=== PATIENT | female | born 1940 | race Caucasian/White ===

== ENCOUNTER 2025-08-30 13:03 | Emergency (ER) | payer MEDICARE, BC ==
[~2025-08-30] VITALS: Ht 170.2 cm; Wt 58.1 kg
[2025-08-30 14:52] LABS: PLATELET COUNT (AUTO) 208 K/uL (150-450); RED BLOOD CELL COUNT(AUTO) 4.52 MIL/uL (4.0-5.2); RED CELL DISTRIBUTION WIDTH 14.7 % (11.5-15.0); WHITE BLOOD COUNT (AUTO) 5.2 K/uL (4.3-11.0)
[2025-08-30 15:04] LABS: INR 0.97 (0.91-1.10)
[2025-08-30 15:05] LABS: CALCIUM, SERUM 8.8 mg/dL (8.5-10.1); CREATININE 1.1 mg/dL (0.6-1.3); SODIUM SERUM 137.0 mmol/L (136-145); UREA NITROGEN, BLOOD 22.0 mg/dL (7-18)
[2025-08-30 15:25] LABS: ASPARTATE AMINOTRANSFERASE 30.0 U/L (15-37); NT-PRO BNP 114.0 pg/mL (0-125); TOTAL PROTEIN, SERUM 7.9 g/dL (6.4-8.2)
[2025-08-30 15:41] VITALS: BP 132/81; TEMP 98.1; O2SAT 98
== END 2025-08-30 15:42 | disposition home or self-care (01) ==
LOC: ER 13:17
DX: R60.0 Localized edema (principal); E03.9 Hypothyroidism, unspecified; R06.02 Shortness of breath; I80.9 Phlebitis and thrombophlebitis of unspecified site; I11.9 Hypertensive heart disease without heart failure; J98.4 Other disorders of lung; Z85.818 Personal history of malignant neoplasm of other sites of lip, oral cavity, and pharynx; Z90.13 Acquired absence of bilateral breasts and nipples
CPT/HCPCS: 36415; 71045-TC; 80048-TC; 80076-TC; 83880; 85025-TC; 85730-TC; 93970-TC